=== PATIENT | male | born 1960 | race Caucasian/White ===

== ENCOUNTER 2017-03-28 17:15 | Emergency (ER) | payer MEDICARE, MEDICAID ==
[~2017-03-28] VITALS: Ht 182.9 cm; Wt 72.6 kg
[~2017-03-28 17:15] MED LIST: ACETAMINOPHEN-1 EAC1 PO; ASPIR 8181 MG PO; BACTRIM DS TAB1 EACH PO; BACTROBAN CREAM30 G1 TOP; CENTANY30 GM TP; CENTRUM SILVER1 EAC4; CEPHALEXIN 500500 M3 PO; CIPROFLOXIN HC2.5 M1 OPHTHALMIC; CLEOCIN HCL150 MG PO; CLEOCIN HCL300 MG PO; CLONAZEPAM 1 MG1 M1; CYCLOBENZAPRINE5 MG PO; DOXYCYCLINE 10100 M1 PO; DOXYCYCLINE 10100 MG PO; GLUCOSAMINE HC500 MG; HUMALOG100 UNIT/2 SQ; HYDROCHLOROTH12.5 M1; HYDROCODONE-AP1 EAC6 PO; IBUPROFEN 600600 M1; IBUPROFEN 800800 M1 PO; KEFLEX500 MG PO; LASIX 40 MG TAB40 M2 PO; LEVEMIR SUBQ; LINZESS145 MCG; LOSARTAN POTAS100 MG; MAGOX 400400 MG; NOHOMEMEDICATIONS; NORCO 5-325 TA1 EAC1 PO; NORCO 5-325 TA1 EACH PO; NOVOLOG100 UNIT/1 SUBQ; OMEPRAZOLE40 MG; PERCOCET 7.5-31 EACH PO; PREDNISONE 10 M10 MG PO; PRINIVIL20 M1 PO; PROBIOTIC1 EAC1 PO; PROZAC10 MG; TEGRETOL200 MG; TRAMADOL 50 MG50 MG PO; ZANAFLEX2 M1 PO; ZYRTEC 10 MG TA10 MG
[2017-03-28 17:52] LABS: INFLUENZA A ANTIGEN None Detected (None Detect); INFLUENZA B ANTIGEN None Detected (None Detect)
[2017-03-28 18:32] LABS: ABSOLUTE BASOPHILS 0.1 thou/uL (0.0-0.2); ABSOLUTE LYMPHOCYTES 1.3 thou/uL (0.8-5.3); ABSOLUTE MONOCYTES 0.9 thou/uL (0.0-1.2); ABSOLUTE NEUTROPHILS 3.1 thou/uL (1.6-8.1); BASOPHILS 1.4 %; EOSINOPHILS 0.7 %; HEMATOCRIT 34.5 % (42.0-52.0); HEMOGLOBIN 11.6 gm/dL (14.0-18.0); MCH 33.4 pg (26.0-34.0); MCHC 33.5 g/dL (28.0-37.0); MCV 99.5 fL (80.0-100.0); MONOCYTES 16.1 %; MPV 7.8 fl. (7.2-11.1); NUCLEATED RBCS 0 /100WBC; PLATELET COUNT* 305 thou/uL (150-400); POLYS 57.8 %; RBC 3.47 mil/uL (4.50-6.00); RDW-CV 12.9 % (10.5-14.5); WBC 5.3 thou/uL (4.0-11.0)
[2017-03-28 18:33] LABS: CREATININE 0.8 mg/dL (0.6-1.3); POTASSIUM 3.9 mmol/L (3.5-5.1)
[2017-03-28 18:44] LABS: ALBUMIN 2.7 g/dL (3.4-5.0); TOTAL BILIRUBIN 0.4 mg/dL (<0.1-1.0); TOTAL PROTEIN 7.3 g/dL (6.4-8.2)
[2017-03-28] MEDS ORDERED: AMOXICILLIN 50500 MG PO (19:17)
[2017-03-28] MEDS ORDERED: ROBAXIN500 MG PO (19:17)
[2017-03-28 19:44] VITALS: BP 167/94
== END 2017-03-28 19:45 | disposition left against medical advice (07) ==
LOC: M.ERS 17:15
PROVIDERS: Family Medicine; Nurse Practitioner Family
DX: S16.1XXA Strain of muscle, fascia and tendon at neck level, initial encounter (principal); S70.01XA Contusion of right hip, initial encounter; J06.9 Acute upper respiratory infection, unspecified; E11.9 Type 2 diabetes mellitus without complications; I10 Essential (primary) hypertension; F17.210 Nicotine dependence, cigarettes, uncomplicated; W18.39XA Other fall on same level, initial encounter; Y93.89 Activity, other specified; Y92.89 Other specified places as the place of occurrence of the external cause; Y99.8 Other external cause status

== ENCOUNTER 2017-05-30 08:49 | Emergency (ER) | payer MEDICARE, MEDICAID ==
[~2017-05-30] VITALS: Ht 180.3 cm; Wt 72.6 kg
[~2017-05-30 08:49] MED LIST changes: +AMOXICILLIN 50500 MG PO; +ROBAXIN500 MG PO
[2017-05-30 08:53] VITALS: BP 162/80
[2017-05-30 09:16] LABS: ABSOLUTE BASOPHILS 0.1 thou/uL (0.0-0.2); ABSOLUTE EOSINOPHILS 0.1 thou/uL (0.0-0.7); ABSOLUTE LYMPHOCYTES 1.3 thou/uL (0.8-5.3); ABSOLUTE MONOCYTES 0.4 thou/uL (0.0-1.2); BASOPHILS 1.9 %; EOSINOPHILS 3.4 %; HEMATOCRIT 35.2 % (42.0-52.0); HEMOGLOBIN 12.1 gm/dL (14.0-18.0); LYMPHOCYTES 46.1 %; MCH 33.2 pg (26.0-34.0); MCHC 34.3 g/dL (28.0-37.0); MCV 96.7 fL (80.0-100.0); MONOCYTES 13.3 %; MPV 7.9 fl. (7.2-11.1); NUCLEATED RBCS 0 /100WBC; PLATELET COUNT* 208 thou/uL (150-400); POLYS 35.3 %; RBC 3.64 mil/uL (4.50-6.00); RDW-CV 12.5 % (10.5-14.5); WBC 2.7 thou/uL (4.0-11.0)
[2017-05-30 09:25] LABS: CALCIUM 8.5 mg/dL (8.5-10.1); CREATININE 0.9 mg/dL (0.6-1.3); POTASSIUM 3.5 mmol/L (3.5-5.1)
[2017-05-30 09:35] LABS: ALBUMIN 2.7 g/dL (3.4-5.0); TOTAL BILIRUBIN 0.3 mg/dL (<0.1-1.0); TOTAL PROTEIN 6.6 g/dL (6.4-8.2)
[2017-05-31 03:11] LABS: GLYCOHEMOGLOBIN (HGB A1C) 10.4 % (4.8-5.6)
== END 2017-05-30 09:43 | disposition left against medical advice (07) ==
LOC: M.ERS 08:49
PROVIDERS: Personal Emergency Response Attendant
DX: E11.649 Type 2 diabetes mellitus with hypoglycemia without coma (principal); I10 Essential (primary) hypertension; F17.210 Nicotine dependence, cigarettes, uncomplicated; F10.99 Alcohol use, unspecified with unspecified alcohol-induced disorder; Z79.4 Long term (current) use of insulin; Z86.19 Personal history of other infectious and parasitic diseases

== ENCOUNTER 2017-08-02 11:35 | Emergency (ER) | payer MEDICARE, MEDICAID ==
[~2017-08-02] VITALS: Ht 180.3 cm; Wt 72.6 kg
[2017-08-02] MEDS ORDERED: LYRICA100 MG (11:46)
[2017-08-02 12:10] LABS: ABSOLUTE BASOPHILS 0.1 thou/uL (0.0-0.2); ABSOLUTE EOSINOPHILS 0.1 thou/uL (0.0-0.7); ABSOLUTE LYMPHOCYTES 1.7 thou/uL (0.8-5.3); ABSOLUTE MONOCYTES 0.4 thou/uL (0.0-1.2); ABSOLUTE NEUTROPHILS 1.4 thou/uL (1.6-8.1); BASOPHILS 2.4 %; EOSINOPHILS 3.1 %; HEMATOCRIT 39.5 % (42.0-52.0); HEMOGLOBIN 13.5 gm/dL (14.0-18.0); LYMPHOCYTES 44.8 %; MCH 33.1 pg (26.0-34.0); MCHC 34.3 g/dL (28.0-37.0); MCV 96.7 fL (80.0-100.0); MONOCYTES 11.3 %; NUCLEATED RBCS 0 /100WBC; PLATELET COUNT* 241 thou/uL (150-400); POLYS 38.4 %; RBC 4.09 mil/uL (4.50-6.00); RDW-CV 12.7 % (10.5-14.5); WBC 3.7 thou/uL (4.0-11.0)
[2017-08-02 12:18] LABS: ANION GAP 10 mmol/L (7-16); BUN 31 mg/dL (7-18); CALCIUM 9.4 mg/dL (8.5-10.1); CHLORIDE 102 mmol/L (98-107); CO2 25 mmol/L (21-32); CREATININE 1.1 mg/dL (0.6-1.3); POTASSIUM 3.4 mmol/L (3.5-5.1); SODIUM 137 mmol/L (136-145)
[2017-08-02 12:29] LABS: ALBUMIN 3.4 g/dL (3.4-5.0); ALKALINE PHOSPHATASE 168 U/L (46-116); NT-PRO BRAIN NAT PEPTIDE 40 pg/mL (<300); SGOT 134 U/L (15-37); SGPT 166 U/L (30-65); TOTAL BILIRUBIN 0.4 mg/dL (<0.1-1.0); TOTAL PROTEIN 8.2 g/dL (6.4-8.2); TROPONIN-I LEVEL <0.06 ng/mL (<0.06)
[2017-08-02 12:31] LABS: GLUCOSE 39 mg/dL (70-99)
[2017-08-02 13:04] VITALS: BP 185/87
--- NOTE | 2017-08-02 14:58 | EKG ---
[place] [address] ELECTROCARDIOGRAM REPORT Name: MAL YEPEZ Room: [facility]#: [id number] Admission: 08/02/17 Attend Phys: Discharge: 08/02/17 Date of : 64 Report #: [id number] THIS REPORT FOR: //name// [facility] ED Test Date: 2017-08-02 Test Time: 11:48:30 Pat Name: MAL YEPEZ Department: Room: Gender: M Electrical Tryout Person: Chastity VINSON : 1960 Requested By: Dirk Chow Order Number: [id number] MD: Jeramy Nelson Measurements Intervals [place] Rate: 109 P: 72 AK: 146 QRS: 54 QRSD: 86 T: 51 QT: 360 QTc: 485 Interpretive Statements Sinus tachycardia Low voltage, extremity leads Borderline prolonged QT interval Compared to ECG 11/29/2016 09:10:37 Sinus rhythm no longer present Electronically Signed On 08-02-2017 14:58:37 CDT by Jeramy Nelson [email or web address] <ELECTRONICALLY SIGNED> By: Jeramy Nelson MD, [facility] 08/02/17 1458 [id number] Jeramy Nelson MD, FAC /EPI
== END 2017-08-02 13:04 | disposition home or self-care (01) ==
LOC: M.ERS 11:35
PROVIDERS: Family Medicine
DX: E11.649 Type 2 diabetes mellitus with hypoglycemia without coma (principal); I10 Essential (primary) hypertension; F17.210 Nicotine dependence, cigarettes, uncomplicated; Z79.4 Long term (current) use of insulin